=== PATIENT | female | born 1990 | race Caucasian/White ===

== ENCOUNTER 2024-11-09 10:24 | Emergency (ER) | payer OTHER ==
[2024-11-09 10:39] VITALS: BP 128/75; PULSE 78; RESP 18; TEMP 97.5; O2SAT 97
[2024-11-09] MEDS ORDERED: TRUVADA 200 MG-300 MG TABLET ONE (10:58)
[2024-11-09] MEDS ORDERED: ISENTRESS ONE (10:59)
[2024-11-09] MEDS: ISENTRESS PO SCH ×2 (11:01→11:02)
[2024-11-09] MEDS: TRUVADA 200 MG-300 MG TABLET PO STA (11:01)
--- NOTE | 2024-11-09 11:03 | ERPHSYRPT ---
- History of Present Illness Time Seen by Provider: 11/09/24 10:41 Source: patient Exam Limitations: no limitations Patient Subjective Stated Complaint: pt states she was exposed to face with contaminated fluid from a colonoscopy. she states it went on her face and in left eye, she states she flushed her eye and washed her face Triage Nursing Assessment: pt alert, walked in, resp easy, skin w/d/p. 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 She immediately went to the eyewash station and washed for 15 minutes. Denies any blurry vision, burning sensation in the eye. Unsure about patient status of HIV and any others. Patient would like to have initial dose of Truvada and [facility], infectious control/employee health will call the source to have HIV and other testing done. Patient does understand the risk and benefits associated with antiviral medications. She is given the first dose in here and we will send a prescription to the pharmacy. Baseline workup is obtained as per postexposure prophylaxis requirement. Discussed signs symptoms of worsening needing return to ER which she seems understanding. Stable for discharge. Allergies/Adverse Reactions: sulfamethoxazole [From Bactrim] Allergy (Verified 11/09/24 10:37) trimethoprim [From Bactrim] Allergy (Verified 11/09/24 10:37) Hx Tetanus, Diphtheria Vaccination/Date Given: Yes (2 months ago) Hx Influenza Vaccination/Date Given: Yes Hx Pneumococcal Vaccination/Date Given: No Immunizations Up to Date: Yes Travel Risk - International Travel Have you traveled outside of the country in past 3 weeks: No - Emerging Infectious Disease Are you exhibiting symptoms associated with any current EIDs: No - Review of Systems Constitutional: No Symptoms Eyes: Eye Redness Ears, Nose, & Throat: No Symptoms Respiratory: No Symptoms Cardiac: No Symptoms Abdominal/Gastrointestinal: No Symptoms Psychological: No Symptoms Endocrine: No Symptoms - Past Medical History Pertinent Past Medical History: No - Past Surgical History Past Surgical History: Yes Female Surgical History: Section, Other Other Surgical History: ablasion, - Female History Hx Last Menstrual Period: october Hx Now: No - Social History Smoking Status: Never smoker Exposure to second hand smoke: No Drug Use: none - Social Determinants of Health Will the patient participate in the screening: Declined to provide - Nursing Vital Signs Nursing Vital Signs: Initial Vital Signs Temperature 97.5 F 11/09/24 10:39 Pulse Rate 78 11/09/24 10:39 Respiratory Rate 18 11/09/24 10:39 Blood Pressure 128/75 11/09/24 10:39 O2 Sat by Pulse Oximetry 97 11/09/24 10:39 Pain Scale Pain Intensity 0 - Physical Exam General Appearance: no apparent distress, alert Eye Exam: PERRL/EOMI, eyes nml inspection Ears, Nose, Throat Exam: normal ENT inspection Neck Exam: normal inspection, non-tender Respiratory Exam: normal breath sounds, lungs clear Cardiovascular Exam: regular rate/rhythm, normal heart sounds Neurologic Exam: alert, oriented x 3, cooperative, manager appointment II-XII nml as tested SpO2 Interpretation: normal SpO2: 97 O2 Delivery: Room Air Ordered Tests: Active Orders 24 hr Category Date Time Status Wound Care STAT Care 11/09/24 10:53 Active CBC W DIFF Stat Lab 11/09/24 10:53 Ordered CMP Stat Lab 11/09/24 10:53 Ordered HCG QUALITATIVE, SERUM Stat Lab 11/09/24 Ordered Medication Summary Generic Name Dose Route Start Last Admin Trade Name Freq PRN Reason Stop Dose Admin Emtricitabine/Tenofovir 1 tablet 11/10/24 10:00 11/09/24 11:05 Emtricitabine/Tenofovir 1 Tablet PO 11/11/24 10:01 1 tablet DAILY LISA Administration Raltegravir 400 mg 11/09/24 11:00 11/09/24 11:01 Raltegravir Potassium 400 Mg Tablet PO 12/09/24 10:59 400 mg STAT LISA Administration Raltegravir 400 mg 11/09/24 22:00 11/09/24 11:02 Raltegravir Potassium 400 Mg Tablet PO 11/11/24 22:01 400 mg BID LISA Administration Discontinued Medications Generic Name Dose Route Start Last Admin Trade Name Freq PRN Reason Stop Dose Admin Emtricitabine/Tenofovir 1 tablet 11/09/24 10:53 11/09/24 11:01 Emtricitabine/Tenofovir 1 Tablet PO 11/09/24 10:54 1 tablet STAT STA Administration Emtricitabine/Tenofovir Confirm 11/09/24 10:58 Emtricitabine/Tenofovir 1 Tablet Administered 11/09/24 10:59 Dose 2 tablet .ROUTE .STK-MED ONE Raltegravir Confirm 11/09/24 10:59 Raltegravir Potassium 400 Mg Tablet Administered 11/09/24 11:00 Dose 2,000 mg .ROUTE .STK-MED ONE - Progress Progress: improved Progress Note: 11/09/24 11:01 34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 She immediately went to the eyewash station and washed for 15 minutes. Denies any blurry vision, burning sensation in the eye. Unsure about patient status of HIV and any others. Patient would like to have initial dose of Truvada and [facility], infectious control/employee health will call the source to have HIV and other testing done. Patient does understand the risk and benefits associated with antiviral medications. She is given the first dose in here and we will send a prescription to the pharmacy. Baseline workup is obtained as per postexposure prophylaxis requirement. Discussed signs symptoms of worsening needing return to ER which she seems understanding. Stable for discharge. Counseled pt/family regarding: lab results, diagnosis, need for follow-up Medical Desision Making - Diagnostic Testing Diagnostic test were ordered, analyzed, and reviewed by me: Yes - Risk of complications The pt has a mod risk of morbidity or mortality based on: Need for prescription drug management - Departure Departure Disposition: Home Clinical Impression: Exposure to body fluid Condition: Stable Critical Care Time: No Referrals: LILIANA MENON NP [Primary Care Provider] - Follow up with PCP 1 day Instructions: Exposure to HIV or hepatitis through blood or body fluids Additional Instructions: Follow-up with employee health/primary care for reevaluation. Return to ER for worsening of symptoms like redness, itching, burning sensation in the eye, visual changes etc. Prescriptions: Raltegravir Potassium [Isentress] 400 mg PO BID 25 Days #50 tablet Emtricitabine/Tenofovir [Truvada 200 mg-300 mg Tablet] 1 each PO DAILY #25 tablet Ondansetron ODT 4 MG [Zofran Odt 4 mg] 1 ea PO QIDPRN PRN 10 Days #12 tablet PRN Reason: n/v
[2024-11-09] MEDS: TRUVADA 200 MG-300 MG TABLET PO SCH (11:05)
[2024-11-09 11:21] LABS: Absolute Neutrophil Ct (ANC) 5.81 x10^3/uL (1.56-6.13); BASOPHIL % 0.5 % (0.1-1.2); Basophil (Absolute #) 0.04 x10^3/uL (0.01-0.08); Eosinophil % 0.2 % (0.7-5.8); Eosinophil (Absolute #) 0.02 x10^3/uL (0.04-0.36); Hematocrit 46.1 % (34.1-44.9); Hemoglobin 15.1 g/dL (11.2-15.7); IMMATURE GRAN # 0.01 x10^3u/L (0.001-0.031); IMMATURE GRAN % 0.1 % (0.001-0.429); Lymphocyte (Absolute #) 2.11 x10^3/uL (1.18-3.74); Mean Cell Volume 86.8 fL (79.4-94.8); Mean Corpuscular Hemoglobin 28.4 pg (25.6-32.2); Mean Corpuscular Hgb Concent. 32.8 g/dL (32.2-35.5); Mean Platelet Volume 9.9 fL (9.4-12.3); Monocyte (Absolute #) 0.45 x10^3/uL (0.24-0.86); Monocytes % 5.3 % (4.7-12.5); Neutrophil % 68.9 % (34.0-71.1); Platelet Count 280 x10^3/uL (182-369); Red Blood Count 5.31 x10^6/uL (3.93-5.22); Red Cell Distribution Width 13.2 % (11.7-14.4); White Blood Count 8.4 x10^3/uL (3.98-10.04)
[2024-11-09 11:38] LABS: HCG SERUM TEST NEGATIVE (NEGATIVE)
[2024-11-09 11:39] LABS: ALBUMIN 5.3 g/dL (3.5-5.0); ANION GAP 19.1 MEQ/L (5-15); BILIRUBIN,TOTAL 0.7 mg/dL (0.2-1.3); Calcium 9.5 mg/dL (8.4-10.2); Creatinine 1 0.61 mg/dL (0.52-1.04); EST GLOMERULAR FILTRATION RATE 119.5 ML/MIN; Potassium 3.8 mmol/L (3.5-5.1); Total Protein 8.3 g/dL (6.3-8.2)
[2024-11-10 07:41] LABS: HBsAg Screen Negative (Negative); Hep B Surface Ab, Quant <3.5 mIU/mL (Immunity>10); Hep C Virus Ab Non Reactive (Non Reactive)
[2024-11-10 09:26] LABS: HIV Screen 4th Generation wRfx Non Reactive (Non Reactive)
== END 2024-11-09 11:27 | disposition home or self-care (01) ==
LOC: ED 10:24
DX: Z77.21 Contact with and (suspected) exposure to potentially hazardous body fluids (principal); Z79.899 Other long term (current) drug therapy
CPT/HCPCS: 36415; 80053; 84703; 85025; 86317; 87340; 87389; 99283; G0472; 86803; 99284; A9270-GY